=== PATIENT | male | born 1990 | race Caucasian/White ===

== ENCOUNTER → 2019-02-16 09:08 | Outpatient (CLI) | payer BC, MEDICAID, SELFPAY ==
--- NOTE | 2019-02-16 10:00 | MRI_ITS ---
STUDY: MRI LUMBAR SPINE WITHOUT CONTRAST REASON FOR EXAM: Male, 29 years old. Right-sided radiculopathy. Injury last summer TECHNIQUE: Standardized fat and water weighted pulse sequences were obtained in the sagittal and axial planes. COMPARISON: None FINDINGS: There is normal alignment and curvature of the lumbosacral spine with no acute fractures or dislocations and no abnormal marrow infiltrative processes. The disc spaces look well-maintained with no loss of disc height and no desiccation. The conus medullaris terminates at T12-L1 T12-L1: Normal endplates. Normal disc height, hydration and morphology. Normal bilateral facet joints. Normal central canal and bilateral lateral recesses. Normal bilateral intervertebral neural foramina. L1-2: Normal endplates. Normal disc height, hydration and morphology. Normal bilateral facet joints. Normal central canal and bilateral lateral recesses. Normal bilateral intervertebral neural foramina. L2-3: Normal endplates. Normal disc height, hydration and morphology. Normal bilateral facet joints. Normal central canal and bilateral lateral recesses. Normal bilateral intervertebral neural foramina. L3-4: Normal endplates. Normal disc height, hydration and morphology. Normal bilateral facet joints. Normal central canal and bilateral lateral recesses. Normal bilateral intervertebral neural foramina. L4-5: Normal endplates. Normal disc height, hydration and morphology. Normal bilateral facet joints. Normal central canal and bilateral lateral recesses. Normal bilateral intervertebral neural foramina. L5-S1: There is a large 2.0 x 0.5 cm right paracentral/foraminal disc protrusion with impingement and posterior displacement of the right intraspinal S1 nerve root and narrowing of the right intervertebral foramen. The facet joints are normal.. The aorta and visualized portions of the kidneys are normal. MRI/Spine Lumbar (Routine) IMPRESSION: A large 2.0 x 0.5 cm right paracentral/foraminal disc protrusion at the L5-S1 level with impingement and posterior displacement of the right intraspinal S1 nerve root. There is also narrowing of the right intervertebral foramen by the protruding disc. Electronically Signed: Bandar Doll MD at 10:19 EDT Tel , Service support ,
== END ==
PROVIDERS: Family Provider Family Medicine; PCP Family Medicine; Referring Provider Family Medicine; Visit Provider Family Medicine
DX: M54.16 Radiculopathy, lumbar region (principal)
CPT/HCPCS: 72148

== ENCOUNTER 2019-03-01 12:30 | Outpatient (RCR) | payer BC, MEDICAID, SELFPAY ==
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
--- NOTE | 2019-03-01 13:34 | HP.PTDCSUM ---
HP - PT D/C Summary It has been my pleasure to treat SRIDHAR ZUNIGA under orders from Brendon Michaels MD, for the diagnosis of LUMBAR RADICULOPATHY for a total of 13 visit(s). Discharge Date: Please see the following information for a summary of their discharge status. - Subjective Subjective: PATIENT REPORTS HE HAD THE MRI AND THE NURSE TOLD HIM HE HAS A LARGE HERNIATED DISC PUSHING ON THE A NERVE. SCHEDULED TO SEE DR. TALAVERA MAY 01 2019. CURRENTLY PATIENT REPORTS HE IS STILL HAVING A LOT OF PAIN STANDING AND WALKING AND CAN NOT LIFT ANYTHING. CAN NOT JOG. THE PAIN IS SOMETIMES IN THE LOW BACK BUT A LOT OF PAIN IN RIGHT BOTTOCK AND THIGH. HAS TO SIT DOWN A LOT. THE WHOLE LEG INCLUDING THE KNEE AND CALF WILL ACHE AT TIMES EVEN IN LYING. DENIES ANKLE AND FOOT SX'S. DENIES NUMBNESS OR TINGLING. ONLY GETS WHOLE LEG SYMPTOMS IF HE IS ON HIS FEET A LOT. PATIENT REPORTS HIS PAIN IS THE SAME NOW IN NOVEMBER 2018. - Pain RIGHT BUTTOCK Pain Intensity (Out of 10): 1 RIGHT THIGH Pain Intensity (Out of 10): 1 RIGHT KNEE/CALF Pain Intensity (Out of 10): 0 - Objective Objective/Function: PATIENT IS NOT IMPROVING. HE IS HOWEVER INDEP WITH A POOL EX PROGRAM NOW. HE IS ALSO KNOWLEGABLE ABOUT PROPER POSTURE CONTROL, BODY MECHANICS AND APPROPRIATE ACTIVITY MODIFICATIONS WITHIN IN HIS CAPABLILITY. UPON EXAM TODAY HE CONTINUES TO DEMO INDEP GAIT INTO PT LIMPING ON RIGHT LE. INCREASED TRUNK FLEX. NO AD. Motor deficit: ROBLES LE'S 5/5 WITH MMT'ING EXCEPT ROBLES HIPS 4-/5 AND RIGHT CALF 4/5. Sensory deficit: ROBLES LE LIGHT TOUCH SENSATION INTACT AND SYMMETRICAL. ROM deficit: TIGHT ROBLES HS'S. Reflexes: UNABLE TO ELICIT ROBLES LE DTR'.S. Dural Signs: POSITIVE ROBLES LE'S RIGHT > LEFT. Lumbar mvmt loss: flex - MOD. ext - POPEYE IN STANDING AND MINIMAL IN LYING. R SG - MIN TO MOD. L SG - MOD. Core strength: POOR. Palpation: PATIENT IS NOT TENDER WITH LIGHT PALPATION OF THE LUMBAR REGION TODAY EVEN L45S1 REGION. PATIENT IS ABLE TO HEEL WALK AND TOE WALK BUT HAS RIGHT PLANTAR FLEXION WEAKNESS COMPARED TO LEFT. PATIENT IS UNABLE TO STAND FOR MORE THAN JUST A FEW MINUTES BEFORE THE PAIN FORCES HIM TO SIT DOWN. LUMBAR OSWESTRY SCORE HAS NOT SIGNIFICANTLY CHANGED SINCE INITIAL EVAL. - Goals Goal 1:: DECREASE C/O LOW BACK AND ROBLES LE SX'S. Goal 2:: IMPROVE PERSONAL CARE, LIFTING, WALKING, STANDING, SLEEP, SOCIAL LIFE, TRAVEL AND EMPLOYMENT FUNCTION. Goal 3:: INSTRUCT IN PROPHYLAXIS - Plan Plan: D/C DUE TO LACK OF PROGRESS. PATIENT IS PURSUING SURGICAL CONSULTS AND TRYING TO GET IN SOONER THAN APRIL 2019. - D/C Information If there are questions or concerns regarding this patient's physical therapy, please feel free to call me at [phone]. Thank you for the referral of this patient. Sincerely, Ya Vega, PT, Cert MDT
== END 2019-03-01 14:54 | disposition home or self-care (01) ==
LOC: PT 12:30
PROVIDERS: Family Provider Family Medicine; PCP Family Medicine; Referring Provider Family Medicine; Visit Provider Family Medicine
DX: M54.16 Radiculopathy, lumbar region (principal)
CPT/HCPCS: 97014; 97035; 97113; 97162; 97530; G0283